=== PATIENT | male | born 1975 | race Caucasian/White ===

== ENCOUNTER → 2017-04-05 | Outpatient (CLI) | payer MEDICARE | LOC: M OUTALCOH 08:02 | PROVIDERS: ATTEND Psychiatry & Neurology Psychiatry | DX: F11.20 Opioid dependence, uncomplicated (principal); F12.20 Cannabis dependence, uncomplicated ==

== ENCOUNTER 2017-05-09 09:00 | Outpatient (RCR) | payer MEDICARE | END 2017-05-11 | LOC: M OUTALCOH 09:00 | PROVIDERS: ATTEND Psychiatry & Neurology Psychiatry | DX: F11.20 Opioid dependence, uncomplicated (principal); F12.20 Cannabis dependence, uncomplicated; F10.20 Alcohol dependence, uncomplicated; F17.200 Nicotine dependence, unspecified, uncomplicated ==

== ENCOUNTER 2017-05-16 11:00 | Outpatient (RCR) | payer MEDICARE | END 2017-06-11 | LOC: M OUTALCOH 05-26 11:00 | DX: F11.20 Opioid dependence, uncomplicated (principal); F12.20 Cannabis dependence, uncomplicated; F10.20 Alcohol dependence, uncomplicated; F17.200 Nicotine dependence, unspecified, uncomplicated | CPT/HCPCS: 90834 ==

== ENCOUNTER 2017-07-14 14:57 | Inpatient (IN) | payer MEDICARE, SELFPAY ==
[2017-07-14] MEDS: NICOTINE 21MG/24HR 1 EA TRANSDERMAL TD (15:30)
[2017-07-14 15:34] LABS: HEMATOCRIT 48.2 % (42.0-52.0); HEMOGLOBIN 16.7 g/dl (14.0-18.0); MEAN CORPUSCULAR HGB CONC 34.6 g/dl (32.0-36.5); MEAN CORPUSCULAR VOLUME 89.6 fl (80.0-96.0); PLATELET COUNT, AUTOMATED 283 10^3/uL (150-450); RED BLOOD COUNT 5.38 10^6/uL (4.30-6.10); RED CELL DISTRIBUTION WIDTH 12.6 % (11.5-14.5); WHITE BLOOD COUNT 9.9 10^3/uL (4.0-10.0)
[2017-07-14] MEDS: LORazepam 2 MG TAB PO (15:42)
[2017-07-14 16:00] LABS: ALBUMIN 4.4 GM/DL (3.2-5.2); ALBUMIN/GLOBULIN RATIO 1.13 (1.00-1.93); ALKALINE PHOSPHATASE 78 U/L (45-117); ALT/SGPT 18 U/L (12-78); ANION GAP 6 MEQ/L (8-16); AST/SGOT 14 U/L (7-37); BILIRUBIN,DIRECT < 0.1 MG/DL (0.0-0.2); BILIRUBIN,TOTAL 0.3 MG/DL (0.2-1.0); BLOOD UREA NITROGEN 12 MG/DL (7-18); CALCIUM LEVEL 9.1 MG/DL (8.5-10.1); CARBON DIOXIDE LEVEL 27 MEQ/L (21-32); CHLORIDE LEVEL 105 MEQ/L (98-107); CREATININE FOR GFR 0.94 MG/DL (0.70-1.30); ETHYL ALCOHOL (ETHANOL) < 0.003 % (0.000-0.010); GLOMERULAR FILTRATION RATE > 60.0 (>60); GLUCOSE, FASTING 94 MG/DL (70-100); POTASSIUM SERUM 4.3 MEQ/L (3.5-5.1); SALICYLATE LEVEL 3.2 MG/DL (5.0-30.0); SODIUM LEVEL 138 MEQ/L (136-145); THYROID STIMULATING HORMONE 0.592 uIU/ML (0.358-3.740); TOTAL PROTEIN 8.3 GM/DL (6.4-8.2)
[2017-07-14 16:03] LABS: AMPHETAMINES LEVEL URINE NEGATIVE (NEGATIVE); BARBITURATES URINE NEGATIVE (NEGATIVE); BENZODIAZEPINES URINE POSITIVE (NEGATIVE); CANNABINOIDS URINE POSITIVE (NEGATIVE); COCAINE METABOLITE URINE NEGATIVE (NEGATIVE); METHADONE URINE NEGATIVE (NEGATIVE); OPIATES URINE NEGATIVE (NEGATIVE); PHENCYCLIDINE URINE NEGATIVE (NEGATIVE)
[2017-07-14 16:06] LABS: ACETAMINOPHEN LEVEL < 2.0 UG/ML (10.0-30.0)
[2017-07-14] MEDS ORDERED: traZODone 50 MG TAB PO (17:30)
[2017-07-14] MEDS ORDERED: MOM 30ML SUSPENSION UDC PO (17:30)
[2017-07-14] MEDS ORDERED: MAALOX 30 ML SUSP *UDC PO (17:30)
[2017-07-14] MEDS: QUEtiapine FUMARATE 25 MG TAB PO (21:13)
[2017-07-14] MEDS: OLANZapine ORAL DISINTEGRATING TAB 5MG PO (21:13)
[2017-07-15] MEDS: OLANZapine ORAL DISINTEGRATING TAB 5MG PO (10:58)
[2017-07-15] MEDS: ATOMOXETINE HCL 40 MG CAP (STRATTERA) PO (12:00)
[2017-07-15] MEDS: GABAPENTIN 300 MG CAP PO ×2 (12:00→20:06)
[2017-07-15] MEDS: VENLAFAXINE **XR** 75MG CAPSULE PO (12:01)
[2017-07-15] MEDS: diazePAM 2 MG TAB PO (18:59)
[2017-07-15] MEDS: QUEtiapine FUMARATE 25 MG TAB PO (22:21)
[2017-07-16] MEDS: VENLAFAXINE **XR** 75MG CAPSULE PO (08:13)
[2017-07-16] MEDS: GABAPENTIN 300 MG CAP PO ×2 (08:13→21:31)
[2017-07-16] MEDS: INFLUENZA QUADRIVALENT PF VACCINE 0.5ML SYRINGE (90686) IM (08:13)
[2017-07-16] MEDS: ATOMOXETINE HCL 40 MG CAP (STRATTERA) PO (08:13)
[2017-07-16] MEDS: OLANZapine ORAL DISINTEGRATING TAB 5MG PO (11:57)
[2017-07-16] MEDS: ACETAMINOPHEN TAB 650MG DOSE (2X325MG) PO (14:33)
[2017-07-16] MEDS: NICOTINE 14 MG/24 HR TRANSDERMAL TD (14:55)
[2017-07-16] MEDS: diazePAM 2 MG TAB PO (21:31)
[2017-07-17] MEDS: FOLIC ACID 1 MG TAB PO (09:00)
[2017-07-17] MEDS: THIAMINE 100 MG TAB PO ×2 (09:00→21:00)
[2017-07-17] MEDS: MULTIVITAMINS/MINERALS THERAP 1 TAB PO (09:00)
[2017-07-17] MEDS: VENLAFAXINE **XR** 75MG CAPSULE PO (09:00)
[2017-07-17] MEDS: GABAPENTIN 300 MG CAP PO ×2 (09:04→21:22)
[2017-07-17] MEDS: ATOMOXETINE HCL 40 MG CAP (STRATTERA) PO (09:04)
[2017-07-17] MEDS: NICOTINE 14 MG/24 HR TRANSDERMAL TD (09:04)
[2017-07-17] MEDS ORDERED: hydrOXYzine 50 MG TAB PO (11:00)
[2017-07-17] MEDS: LORazepam 2 MG TAB PO (19:15)
[2017-07-18] MEDS: GABAPENTIN 300 MG CAP PO (08:48)
[2017-07-18] MEDS: ATOMOXETINE HCL 40 MG CAP (STRATTERA) PO (08:48)
[2017-07-18] MEDS: FOLIC ACID 1 MG TAB PO (08:49)
[2017-07-18] MEDS: THIAMINE 100 MG TAB PO ×2 (08:49→21:00)
[2017-07-18] MEDS: MULTIVITAMINS/MINERALS THERAP 1 TAB PO (08:49)
[2017-07-18] MEDS: VENLAFAXINE **XR** 75MG CAPSULE PO (08:49)
[2017-07-18] MEDS: NICOTINE 14 MG/24 HR TRANSDERMAL TD (08:50)
[2017-07-18] MEDS: LORazepam 2 MG TAB PO (09:05)
[2017-07-18] MEDS: VIIBRYD 10 MG PO (11:34)
[2017-07-18] MEDS: busPIRone 5 MG TAB PO ×2 (15:37→22:05)
[2017-07-18] MEDS: GABAPENTIN 400 MG CAP PO (22:05)
[2017-07-19] MEDS: LORazepam 2 MG TAB PO (05:20)
[2017-07-19] MEDS: FOLIC ACID 1 MG TAB PO (09:00)
[2017-07-19] MEDS: THIAMINE 100 MG TAB PO ×2 (09:00→21:00)
[2017-07-19] MEDS: MULTIVITAMINS/MINERALS THERAP 1 TAB PO (09:00)
[2017-07-19] MEDS: ATOMOXETINE HCL 40 MG CAP (STRATTERA) PO (09:39)
[2017-07-19] MEDS: GABAPENTIN 400 MG CAP PO ×2 (09:39→21:00)
[2017-07-19] MEDS: busPIRone 5 MG TAB PO ×3 (09:39→21:00)
[2017-07-19] MEDS: NICOTINE 14 MG/24 HR TRANSDERMAL TD (09:40)
[2017-07-19] MEDS: VIIBRYD 10 MG PO (09:40)
[2017-07-20] MEDS: ACETAMINOPHEN TAB 650MG DOSE (2X325MG) PO (00:43)
[2017-07-20] MEDS: OLANZapine ORAL DISINTEGRATING TAB 5MG PO (04:15)
[2017-07-20] MEDS: VIIBRYD 10 MG PO (08:18)
[2017-07-20] MEDS: busPIRone 5 MG TAB PO (08:18)
[2017-07-20] MEDS: GABAPENTIN 400 MG CAP PO (08:18)
[2017-07-20] MEDS: ATOMOXETINE HCL 40 MG CAP (STRATTERA) PO (08:18)
[2017-07-20] MEDS: NICOTINE 14 MG/24 HR TRANSDERMAL TD (08:19)
[2017-07-20] MEDS: FOLIC ACID 1 MG TAB PO (08:19)
[2017-07-20] MEDS: MULTIVITAMINS/MINERALS THERAP 1 TAB PO (08:19)
[2017-07-25] MEDS ORDERED: VIIBRYD 20 MG PO (09:00)
== END 2017-07-20 12:00 | disposition home or self-care (01) | DRG 886 ==
LOC: M ED 14:57 → M ED INP 18:00 → M PSY 18:00
DX: F63.9 Impulse disorder, unspecified (principal); F33.2 Major depressive disorder, recurrent severe without psychotic features; F12.10 Cannabis abuse, uncomplicated; F10.20 Alcohol dependence, uncomplicated; F43.21 Adjustment disorder with depressed mood; F17.210 Nicotine dependence, cigarettes, uncomplicated; Z91.14 Patient's other noncompliance with medication regimen; F90.9 Attention-deficit hyperactivity disorder, unspecified type; M79.601 Pain in right arm; Z79.899 Other long term (current) drug therapy